=== PATIENT | male | born 1975 | race African-American/Black ===

== ENCOUNTER 2016-05-09 16:52 | Emergency (ER) | payer SELFPAY ==
[2016-05-09] MEDS ORDERED: Albuterol/Ipratropium 3.0-0.5 MG/3 ML Neb Soln NEB ONE (17:05)
[2016-05-09] MEDS ORDERED: methylPREDNISolone Sodium Succinate 125 MG/2 ML SDV IVPUSH ONE (17:05)
--- NOTE | 2016-05-09 17:48 | EDM.PDOC ---
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 Pt was diagnosed luis a asthma in the past, was not using inhaler , however. No CP, no N/V/D or other constitutional symptoms Symptom Onset Date: 05/09/16 Symptom Onset Time: 07:00 Timing/Duration: Reports: Hour(s): Severity: moderate Location, General: Reports: chest Improves with: Reports: Medication Worsens with: Reports: Other (exposture to chemicals) Context, General: Reports: Activity Associated Symptoms: Reports: cough, shortness of breath - Related Data Allergies/ADRs: Allergies Allergy/AdvReac Type Severity Reaction Status Date / Time No Known Allergies Allergy Verified 05/09/16 17:23 Home Meds: Home Meds Prednisone [IJD: predniSONE] 20 mg PO WITHBREAKFAST #4 tab 05/09/16 [Rx] ED ROS GENERAL - Review of Systems Review Of Systems: See Below Constitutional: Reports: no symptoms HEENT: Reports: No symptoms Respiratory: Reports: shortness of breath, wheezing Cardiovascular: Reports: No symptoms Endocrine: Reports: no symptoms GI/Abdominal: Reports: No symptoms : Reports: no symptoms Musculoskeletal: Reports: no symptoms Skin: Reports: no symptoms Neurological: Reports: no symptoms Psychiatric: Reports: No symptoms Hematologic/Lymphatic: Reports: no symptoms Immunologic: Reports: no symptoms ED EXAM, GENERAL - Physical Exam Exam: See Below Exam Limited By: Respiratory distress General Appearance: alert, WD/WN, moderate distress Ears: normal external exam, normal canal, hearing grossly normal, normal TMs Ear Exam: bilateral ear: auricle normal, canal normal, TM normal Nose: normal inspection, normal mucosa, no blood Throat/Mouth: Normal inspection, Normal lips, Normal teeth, Normal gums, Normal oropharynx, Normal voice, No airway compromise Head: atraumatic, normocephalic Neck: normal inspection, supple, non-tender, full range of motion Respiratory/Chest: no respiratory distress, lungs clear, normal breath sounds, no accessory muscle use, chest non-tender Cardiovascular: normal peripheral pulses, regular rate, rhythm, no edema, no gallop, no JVD, no murmur, no rub GI/Abdominal: normal bowel sounds, soft, non tender, no organomegaly, no distention, no abnormal bruit, no mass (Male) Exam: No hernia, Normal inspection, Normal prostate, Circumcised Rectal (Males) Exam: Normal exam, Normal rectal tone, Prostate normal Back Exam: normal inspection, full range of motion, NT Extremities: normal inspection, normal range of motion, non-tender, normal capillary refill, no pedal edema Neurological: alert, oriented, CN II-XII intact, normal cognition, normal gait, normal reflexes, no motor/sensory deficits Psychiatric: normal affect, normal mood Skin Exam: Warm, Dry, Intact, Normal color, Other (vitiligo) Lymphatic: no adenopathy Course - Vital Signs Text/Narrative:: 41 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 Pt was diagnosed luis a asthma in the past, was not using inhaler , however. No CP, no N/V/D or other constitutional symptoms PE: Exp wheezes, poor airmovement Imaging: CXR NAD Labs: NAD Imopression: Asthma exacerbation Tx: Duonev/Albuterol, solumedrol reexam: improved. Plan: D/C with instructions Last Recorded V/S: Last Vital Signs Temp 36.8 C 05/09/16 19:40 Pulse 75 05/09/16 19:40 Resp 18 05/09/16 19:40 BP 126/86 05/09/16 19:40 Pulse Ox 96 05/09/16 19:40 - Orders/Labs/Meds Labs: Laboratory Tests 05/09/16 05/09/16 Range/Units 17:10 17:10 WBC 11.0 (4.5-12.0) X10-3/uL RBC 5.52 (4.30-5.75) x10(6)uL Hgb 15.3 (11.5-15.5) g/dL Hct 48.1 (30.0-51.3) % MCV 87.2 (80-96) fL MCH 27.6 L (27.7-33.6) pg MCHC 31.7 L (32.2-35.4) g/dL RDW 12.8 (11.5-15.5) % Plt Count 299 (125-369) X10(3)uL MPV 8.5 (7.4-10.4) fL Neut % (Auto) 74.0 (46-82) % Lymph % (Auto) 13.8 (13-37) % Owsley % (Auto) 7.1 (4-12) % Eos % (Auto) 3 (1.0-5.0) % Baso % (Auto) 2 (0-2) % Neut # 8.1 (1.6-8.3) # Lymph # 1.5 (0.6-5.0) # Owsley # 0.8 (0.0-1.3) # Eos # 0.4 (0.0-0.8) # Baso # 0.2 (0.0-0.2) # Sodium 141 (135-145) mmol/L Potassium 4.3 (3.5-5.3) mmol/L Chloride 106 (100-110) mmol/L Carbon Dioxide 27 (23-29) mmol/L BUN 19 (5-20) mg/dL Creatinine 1.2 (0.6-1.3) mg/dL Est Cr Clr Drug Dosing TNP Estimated GFR (MDRD) > 60 (>60) BUN/Creatinine Ratio 15.8 (9-20) Glucose 109 (80-116) mg/dL Calcium 9.6 (8.6-10.2) mg/dL Meds: Medications Discontinued Medications Generic Name Dose Route Start Last Admin Trade Name Freq PRN Reason Stop Dose Admin Albuterol 2.5 mg 05/09/16 18:00 05/09/16 18:26 Proventil Neb Soln NEB 05/09/16 18:01 2.5 mg ONETIME ONE Administration Albuterol/Ipratropium 3 ml 05/09/16 17:05 05/09/16 17:35 Duoneb 3.0-0.5 Mg/3 Ml NEB 05/09/16 17:06 3 ml ONETIME ONE Administration Methylprednisolone Sodium Succinate 125 mg 05/09/16 17:05 05/09/16 17:59 Solu-Medrol IVPUSH 05/09/16 17:06 125 mg ONETIME ONE Administration Departure - Departure Time of Disposition: 19:19 Disposition: Home, Self-Care 01 Condition: good Clinical Impression: Asthma exacerbation Prescriptions: Prednisone [IJD: predniSONE] 20 mg PO WITHBREAKFAST #4 tab Instructions: Asthma, Adult Referrals: PCP,None [Primary Care Provider] - Additional Instructions: Please quit tobacco use, please avoid chemical exposure at work, pleas wear a mask. Please use the meds as recommended, please come back to the ed if your symptoms get worse acutely.
[2016-05-09] MEDS ORDERED: Albuterol 0.083% 2.5 MG/3 ML Neb Soln NEB ONE (18:00)
[2016-05-09] MEDS ORDERED: Albuterol 8 GM Inhaler INH ONE (19:15)
[2016-05-09 19:42] VITALS: BP 126/86
--- NOTE | 2016-05-10 11:48 | CR ---
INDICATION: Shortness of breath. CHEST: PA and lateral views of the chest were obtained 05/09/2016. No comparisons were available. The ascending aorta appears to be slightly tortuous. No aortic calcification was seen. The heart is normal in size and shape. Bony structures are fairly intact with the exception of some very minimal dextroconcave scoliosis at the lower middle thoracic spine. A definite active infiltrate or effusion was not identified. On the lateral view, diaphragm leaves are partially flattened, raising question of a mild degree of COPD. This should be correlated clinically, however. IMPRESSION: No acute process - question minimal or early ASD aorta, question minimal or early COPD. MTDD
== END 2016-05-09 19:26 | disposition home or self-care (01) ==
LOC: FB.ED 16:52
DX: J45.901 Unspecified asthma with (acute) exacerbation (principal)
CPT/HCPCS: 36415; 71020; 80048; 85025; 99285; J2930; J7620; 94640; 96374; 99284; A9270-GY

== ENCOUNTER 2016-06-06 08:59 | Emergency (ER) | payer SELFPAY ==
[2016-06-06] MEDS ORDERED: Albuterol/Ipratropium 3.0-0.5 MG/3 ML Neb Soln NEB ONE ×2 (09:10→11:36)
[2016-06-06] MEDS ORDERED: Albuterol/Ipratropium 3.0-0.5 MG/3 ML Neb Soln ONE (09:11)
--- NOTE | 2016-06-06 09:17 | EDM.PDOC ---
<Christopher Elizondo - Last Filed: 06/06/16 11:50> ED HISTORY OF PRESENT ILLNESS - General Chief Complaint: Respiratory Problem Stated Complaint: SOB Time Seen by Provider: 06/06/16 08:59 - Related Data Allergies/ADRs: Allergies Allergy/AdvReac Type Severity Reaction Status Date / Time No Known Allergies Allergy Verified 06/06/16 09:07 Home Meds: Home Meds Mometasone/Formoterol [Dulera 200-5 MCG] 2 puff IH BIDRT #1 inhaler 06/06/16 [Rx ] predniSONE 20 mg PO BID #14 tablet 06/06/16 [Rx] Course - Vital Signs Last Recorded V/S: Last Vital Signs Temp 36.9 C 06/06/16 09:09 Pulse 95 06/06/16 11:42 Resp 18 06/06/16 09:09 BP 138/75 06/06/16 09:09 Pulse Ox 100 06/06/16 11:42 - Orders/Labs/Meds Orders: Active Orders 24 hr Category Date Time Status RT Aerosol Therapy [RC] ASDIRECTED Care 06/06/16 09:11 Active RT Aerosol Therapy [RC] ASDIRECTED Care 06/06/16 11:37 Active RT Post Treatment Assessment [RC] Click to Edit Care 06/06/16 11:42 Active Meds: Medications Discontinued Medications Generic Name Dose Route Start Last Admin Trade Name David PRN Reason Stop Dose Admin Albuterol 2.5 mg 06/06/16 09:31 06/06/16 09:53 Proventil Neb Soln NEB 06/06/16 09:32 2.5 mg ONETIME ONE Administration Albuterol 2.5 mg 06/06/16 10:05 06/06/16 10:32 Proventil Neb Soln NEB 06/06/16 10:06 2.5 mg ONETIME ONE Administration Albuterol 2.5 mg 06/06/16 10:32 06/06/16 10:33 Proventil Neb Soln NEB 06/06/16 10:33 Not Given ONETIME ONE Albuterol 1 gm 06/06/16 11:41 06/06/16 11:45 Ventolin Hfa INH 06/06/16 11:42 1 puff ONETIME ONE Administration Albuterol/Ipratropium 3 ml 06/06/16 09:10 06/06/16 09:53 Duoneb 3.0-0.5 Mg/3 Ml NEB 06/06/16 09:11 Not Given ONETIME ONE Albuterol/Ipratropium Confirm 06/06/16 09:11 06/06/16 09:15 Duoneb 3.0-0.5 Mg/3 Ml Administered 06/06/16 09:12 3 ml Dose Administration 3 ml .ROUTE .STK-MED ONE Albuterol/Ipratropium 3 ml 06/06/16 11:36 06/06/16 11:41 Duoneb 3.0-0.5 Mg/3 Ml NEB 06/06/16 11:37 3 ml ONETIME ONE Administration Methylprednisolone Sodium Succinate 125 mg 06/06/16 09:29 06/06/16 09:40 Solu-Medrol IVPUSH 06/06/16 09:30 125 mg ONETIME ONE Administration Departure - Departure Disposition: Home, Self-Care 01 Clinical Impression: Asthma attack Prescriptions: Mometasone/Formoterol [Dulera 200-5 MCG] 2 puff IH BIDRT #1 inhaler predniSONE 20 mg PO BID #14 tablet Referrals: PCP,None [Primary Care Provider] - Forms: ED Department Discharge, Return to Work/School Form Care Plan Goals: Please follwo 's instructions - My Orders Last 24 Hours: My Active Orders 06/06/16 09:11 RT Aerosol Therapy [RC] ASDIRECTED 06/06/16 11:37 RT Aerosol Therapy [RC] ASDIRECTED - Assessment/Plan Last 24 Hours: My Active Orders 06/06/16 09:11 RT Aerosol Therapy [RC] ASDIRECTED 06/06/16 11:37 RT Aerosol Therapy [RC] ASDIRECTED <Marco A Martinez M - Last Filed: 06/06/16 12:39> ED HISTORY OF PRESENT ILLNESS - General Source: Reports: Patient History Limitations: Reports: Respiratory distress - History of Present Illness INITIAL COMMENTS - FREE TEXT/NARRATIVE: 41 years old w m came to the ed due to worsening of sob. Pt works at a [employer]. I was using an Albuterol inhaler in the past, but ran out of it 3 days ago. Pt was never intubated. Could talk 4 words sentences. Symptom Onset Date: 06/06/16 Symptom Onset Time: 07:00 Timing/Duration: Reports: Hour(s): Severity: moderate Location, General: Reports: chest Quality: Reports: Other (sob) Improves with: Reports: Medication Worsens with: Reports: Breathing Context, General: Reports: Activity, Exercise, Other (possible cemical exposture ) Associated Symptoms: Reports: cough, shortness of breath ED ROS GENERAL - Review of Systems Review Of Systems: See Below Constitutional: Reports: no symptoms HEENT: Reports: No symptoms Respiratory: Reports: Shortness of Breath Cardiovascular: Reports: No symptoms Endocrine: Reports: no symptoms GI/Abdominal: Reports: No symptoms : Reports: no symptoms Musculoskeletal: Reports: no symptoms Skin: Reports: no symptoms Neurological: Reports: No Symptoms Hematologic/Lymphatic: Reports: no symptoms Immunologic: Reports: no symptoms ED EXAM, GENERAL - Physical Exam Exam: See Below Exam Limited By: Respiratory distress General Appearance: alert, WD/WN, moderate distress Eye Exam: bilateral eye: normal inspection Ears: normal external exam Ear Exam: bilateral ear: auricle normal Nose: normal inspection, normal mucosa Throat/Mouth: Normal inspection, Normal lips, Normal teeth, Normal oropharynx, Normal voice Head: atraumatic, normocephalic Neck: normal inspection, supple, non-tender Respiratory/Chest: respiratory distress, wheezing, prolonged expiration Cardiovascular: normal peripheral pulses, regular rate, rhythm, no edema, no gallop Peripheral Pulses: 2+: femoral (L), femoral (R) GI/Abdominal: normal bowel sounds, soft, non tender (Male) Exam: Deferred Rectal (Males) Exam: Deferred Back Exam: normal inspection, full range of motion Extremities: normal inspection, normal range of motion, non-tender, no pedal edema Neurological: alert, oriented, CN II-XII intact, normal cognition, normal gait, normal reflexes, no motor/sensory deficits Psychiatric: normal affect, normal mood Skin Exam: Warm, Dry, Intact, Normal color, No rash Lymphatic: no adenopathy Course - Vital Signs Text/Narrative:: 41 years old w m came to the ed due to worsening of sob. Pt works at a [employer]. I was using an Albuterol inhaler in the past, but ran out of it 3 days ago. Pt was never intubated. Could talk 4 words sentences. PE: expiratory wheezes throughout Impression: Asthma exacerbation Tx: Duoneb, Solu-Medrol, Albuterol Reexam: Mild improvement Consultation for admission: Dr. Elizondo: Will the patient in the ed to decide admit of D/C Please see Dr. Elizondo's note Last Recorded V/S: Last Vital Signs Temp 36.9 C 06/06/16 09:09 Pulse 95 06/06/16 11:42 Resp 18 06/06/16 09:09 BP 138/75 06/06/16 09:09 Pulse Ox 100 06/06/16 11:42 Departure - Departure Time of Disposition: 12:05 Condition: fair
[2016-06-06 09:18] VITALS: BP 138/75
[2016-06-06] MEDS ORDERED: methylPREDNISolone Sodium Succinate 125 MG/2 ML SDV IVPUSH ONE (09:29)
[2016-06-06] MEDS ORDERED: Albuterol 0.083% 2.5 MG/3 ML Neb Soln NEB ONE ×3 (09:31→10:32)
[2016-06-06] MEDS ORDERED: Albuterol 8 GM Inhaler INH ONE ×2 (11:41→11:49)
--- NOTE | 2016-06-07 02:25 | ER ---
DATE SEEN: 06/06/2016 CHIEF COMPLAINT: Wheezing. HISTORY OF PRESENT ILLNESS: This is a 41-year-old male, who was seen by Dr. Martinez. He recommended admission. The patient has been complaining of cough and difficulty breathing. He was seen here last week. 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 After two DuoNeb, he still has wheezing and tightness with a peak flow of only 250, but his oxygenation is above 98% on room air. REVIEW OF SYSTEMS: He has no chest pain, fever, or chills. ALLERGIES: He has no known allergies to medications. SOCIAL HISTORY: Does not smoke. PHYSICAL EXAMINATION: GENERAL: He is not in any cardiopulmonary distress. VITAL SIGNS: His pulse is 70 beats per minute and oxygenation 97-98%. EARS, NOSE, AND THROAT: Negative. NECK: Trachea is midline. CHEST: End-expiratory rhonchi, widespread and decreased air exchange. EXTREMITIES: No cyanosis or finger clubbing. IMPRESSION: Acute asthma exacerbation. PLAN: I will give him another DuoNeb, he has already gotten Solu-Medrol IV. I will send him home on ProAir, Dulera, and 20 mg of prednisone twice a day for a week. I wrote a letter to his employer to avoid contact with chemicals and advised him to return to the ED with any worsening symptoms. He is also recommended to see a primary care physician within this week to establish primary care relationship. /[id number] ARIEL/MONTSE
== END 2016-06-06 12:05 | disposition home or self-care (01) ==
LOC: FB.ED 08:59
DX: J45.901 Unspecified asthma with (acute) exacerbation (principal); Z79.899 Other long term (current) drug therapy
CPT/HCPCS: 94640; 96374; 99285; A9270; J2930; J7620; 99284